=== PATIENT | female | born 1960 | race Caucasian/White ===

== ENCOUNTER → 2022-03-29 | Outpatient (CLI) | payer MEDICAID ==
--- NOTE | 2022-03-29 13:36 | Diagnostic Imaging Report ---
INDICATION: Right knee pain. COMPARISON: No comparison available FINDINGS: There are advanced tricompartmental osteoarthritic changes present within the knee with advanced joint space loss within the medial and patellofemoral compartments. There are tricompartmental osteophytes. There are no findings to suggest an acute fracture. There is no suspicious bone lesion. There are no findings of a large knee joint effusion. IMPRESSION: Advanced tricompartmental osteoarthritic changes within the right knee most advanced within the medial and patellofemoral compartments. There are no findings of malalignment or acute fracture. There is no evidence of a large right knee joint effusion. Dictated by: Dictated on workstation # [id number]
== END ==
LOC: ORTHO 11:42
PROVIDERS: ATTEND Orthopaedic Surgery
DX: M17.11 Unilateral primary osteoarthritis, right knee (principal)
CPT/HCPCS: 20610; 73564; G0463

== ENCOUNTER → 2022-08-02 | Outpatient (CLI) | payer MEDICAID | LOC: ORTHO 11:15 | PROVIDERS: ATTEND Orthopaedic Surgery | DX: M17.11 Unilateral primary osteoarthritis, right knee (principal); J44.9 Chronic obstructive pulmonary disease, unspecified; I10 Essential (primary) hypertension; E03.9 Hypothyroidism, unspecified; E66.9 Obesity, unspecified; E55.9 Vitamin D deficiency, unspecified | CPT/HCPCS: 20610 ==

== ENCOUNTER → 2023-07-24 | Outpatient (CLI) | payer MEDICAID | LOC: ORTHO 10:09 | PROVIDERS: ATTEND Orthopaedic Surgery | DX: M17.11 Unilateral primary osteoarthritis, right knee (principal); I10 Essential (primary) hypertension; E66.9 Obesity, unspecified; E03.9 Hypothyroidism, unspecified | CPT/HCPCS: 20610 ==